=== PATIENT | female | born 1995 | race American Indian/Alaskan Native ===

== ENCOUNTER 2017-08-11 16:54 | Inpatient (IN) | payer BC ==
--- NOTE | 2017-08-11 17:13 | ED PDOC ---
HPI: Psych/Substance Abuse Time Seen by Provider: 08/11/17 17:04 Chief Complaint (Nursing): Psychiatric Evaluation History Per: Patient Onset/Duration Of Symptoms: Unknown Suicide/Self Injury Attempted (Context): Cut Wrists Modifying Factor(s): None Associated Symptoms: Depression Additional Complaint(s): Suicidal ideation with plan to cut her wrists. Pt will not say why she is depressed. Past Medical History Vital Signs: Last Vital Signs Temp 98.2 F 08/11/17 16:57 Pulse 108 H 08/11/17 16:57 Resp 18 08/11/17 16:57 BP 200/98 H 08/11/17 16:57 Pulse Ox 98 08/11/17 16:57 - Medical History PMH: Depression - Family History Family History: States: Unknown Family Hx - Allergies Allergies/Adverse Reactions: Allergies Allergy/AdvReac Type Severity Reaction Status Date / Time No Known Allergies Allergy Verified 08/11/17 16:57 Review of Systems ROS Statement: Except As Marked, All Systems Reviewed And Found Negative Psych: Positive for: Depression, Suicidal ideation Physical Exam - Reviewed Nursing Documentation Reviewed: Yes Vital Signs Reviewed: Yes - Physical Exam Appears: Positive for: Non-toxic, No Acute Distress Head Exam: Positive for: ATRAUMATIC, NORMAL INSPECTION, NORMOCEPHALIC Skin: Positive for: Normal Color, Warm, DRY Eye Exam: Positive for: EOMI, Normal appearance, PERRL ENT: Positive for: Normal ENT Inspection Neck: Positive for: Normal, Painless ROM Cardiovascular/Chest: Positive for: Regular Rate, Rhythm Respiratory: Positive for: CNT, Normal Breath Sounds Gastrointestinal/Abdominal: Positive for: Normal Exam, Soft Back: Positive for: Normal Inspection Extremity: Positive for: Normal ROM Neurologic/Psych: Positive for: Alert, Oriented - Laboratory Results Result Diagrams: 08/11/17 18:01 08/11/17 18:01 - ECG O2 Sat by Pulse Oximetry: 98 Medical Decision Making Medical Decision Making: Medically stable for pstchiatric admission Disposition - Clinical Impression Clinical Impression: Depression - Patient ED Disposition Is Patient to be Admitted: Yes - Disposition Disposition Time: 18:53 Condition: FAIR Forms: [employer] (Telugu) - Pt Status Changed To: Hospital Disposition Of: Inpatient - Admit Certification Admit to Inpatient:: After my assessment, the patient will require hospitalization for at least two midnights. This is because of the severity of symptoms shown, intensity of services needed, and/or the medical risk in this patient being treated as an outpatient. - POA Present On Arrival: None
[2017-08-11 18:10] LABS: BASO % 0.4 % (0.0-2.0); EOS # 0.1 K/uL (0.0-0.7); EOS % 0.8 % (0.0-4.0); HEMOGLOBIN 13.4 g/dL (12.0-16.0); LYMPH # 1.5 K/uL (1.0-4.3); LYMPH % 20.8 % (20.0-40.0); MEAN CELL VOLUME 81.7 fl (81.0-99.0); MEAN CORPUSCULAR HEMOGLOBIN 26.8 pg (27.0-31.0); MEAN CORPUSCULAR HGB CONC 32.8 g/dL (33.0-37.0); MEAN PLATELET VOLUME 9.3 fl (7.2-11.7); MONO # 0.7 K/uL (0.0-0.8); MONO % 9.5 % (0.0-10.0); NEUT % 68.5 % (50.0-75.0); RED CELL DISTRIBUTION WIDTH 14.6 % (11.5-14.5); WHITE BLOOD COUNT 7.3 K/uL (4.8-10.8)
[2017-08-11 18:16] LABS: ALB/GLOB RATIO 1.3 (1.0-2.1); ALBUMIN 4.1 g/dL (3.5-5.0); ALT/SGPT 18 U/L (9-52); AST/SGOT 18 U/L (14-36); BLOOD UREA NITROGEN 8 mg/dl (7-17); CALCIUM 9.3 mg/dL (8.4-10.2); GFR AFRICAN-AMERICAN > 60; GFR NON-AFRICAN AMERICAN > 60
[2017-08-11 21:02] VITALS: O2SAT 100
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
[2017-08-11] MEDS ORDERED: Magnesium Hydroxide Susp 30 ml UD PO PRN (22:49)
[2017-08-11] MEDS ORDERED: DiphenhydrAMINE 50 mg/ml Inj IM PRN (22:49)
[2017-08-11] MEDS ORDERED: Alum-Mag Hydrox-Simethicone Susp (30 mL) PO PRN (22:49)
[2017-08-11 22:52] VITALS: BMI 28.3
[2017-08-12 00:18] LABS: SQUAMOUS EPITHIAL 7 /hpf (0-5); URINE BACTERIA RARE (<OCC); URINE BILIRUBIN NEGATIVE (NEGATIVE); URINE BLOOD NEGATIVE (NEGATIVE); URINE CLARITY SLIGHTY-CLOUDY (Clear); URINE COLOR YELLOW (YELLOW); URINE GLUCOSE (UA) NEG (Normal); URINE LEUKOCYTE ESTERASE TRACE Leu/uL (Negative); URINE PROTEIN NEGATIVE (NEGATIVE)
[2017-08-12 01:10] LABS: BARBITURATES, UR NEGATIVE (NEGATIVE); BENZODIAZEPINES, UR NEGATIVE (NEGATIVE); HCG,QUALITATIVE URINE NEGATIVE (NEGATIVE); OPIATES, UR NEGATIVE (NEGATIVE); PHENCYCLIDINE, UR NEGATIVE (NEGATIVE)
[2017-08-12 09:59] LABS: T4 9.82 ug/dl (5.5-11.0)
--- NOTE | 2017-08-12 12:27 | CP.PCM.CON ---
History of Present Illness - History of Present Illness History of Present Illness: 22 y/o female with PMH depression in her adolescent years , not on any treatment for depression at present admitted to psych unit for management of her depression . Patient called the crisis hotline with suicidal thoughts and plan to hurt herself. Police department was consulted and she was brought in for crisis eval . Patient states that she has been having some problems at home and has been feeling more sad lately. She gives history of prior suicidal attempt with pills. At present still feeling helpless. Denies any hallucinations.Denies any chest pain , SOB, palpitations, PND, orthopnea, urinary symptoms or changes in bowel movements. Her menstrual cycle is regular.Not sexually active. Allergies ; NKDA PMH; history of depression and treatment during her adolescence Medications; None Family history ; Mother and Grandmother---HTN surgery : none Social history ; Lives in [place] with father , has 3 brothers ,Mother lives in [place], studies to become a nurse, denies any smoking , ETOH or drug abuse, not sexually active, last menstrual cycle was 2 weeks ago, single ROS ; 14 point review os system negative except above Review of Systems - Review of Systems All systems: reviewed and no additional remarkable complaints except Past Patient History - Infectious Disease Hx of Infectious Diseases: None - Tetanus Immunizations Tetanus Immunization: Unknown - Past Medical History & Family History Past Medical History?: Yes Past Family History: Reviewed and not pertinent - Past Social History Smoking Status: Unknown If Ever Smoked Chewing Tobacco Use: No Cigar Use: No Alcohol: None Drugs: Denies Home Situation {Lives}: With Family Domestic Violence: Negative - CARDIAC Hx Cardiac Disorders: No - PULMONARY Hx Respiratory Disorders: No Hx Tuberculosis: No - NEUROLOGICAL Hx Neurological Disorder: No HX Cerebrovascular Accident: No Hx Seizures: No - HEENT Hx HEENT Problems: No - RENAL Hx Chronic Kidney Disease: No - ENDOCRINE/METABOLIC Hx Endocrine Disorders: No - HEMATOLOGICAL/ONCOLOGICAL Hx Blood Disorders: No Hx Cancer: No Hx Human Immunodeficiency Virus (HIV): No - INTEGUMENTARY Hx Dermatological Problems: No - MUSCULOSKELETAL/RHEUMATOLOGICAL Hx Musculoskeletal Disorders: No - GASTROINTESTINAL Hx Gastrointestinal Disorders: No - GENITOURINARY/GYNECOLOGICAL Hx Genitourinary Disorders: No Hx Sexually Transmitted Disorders: No - PSYCHIATRIC Hx Depression: Yes Hx Emotional Abuse: No Hx Physical Abuse: No Hx Sexual Abuse: No Hx Substance Use: No - SURGICAL HISTORY Hx Surgeries: No - ANESTHESIA Hx Anesthesia: No Meds Allergies/Adverse Reactions: Allergies Allergy/AdvReac Type Severity Reaction Status Date / Time No Known Allergies Allergy Verified 08/11/17 16:57 - Medications Medications: Current Medications Acetaminophen (Tylenol 325mg Tab) 650 mg PO Q4 PRN PRN Reason: pain level 4-7 Al Hydrox/Mg Hydrox/Simethicone (Maalox Plus 30 Ml) 30 ml PO Q4 PRN PRN Reason: Dyspepsia Diphenhydramine HCl (Benadryl) 50 mg IM Q6 PRN PRN Reason: Extrapyramidal S/S Unable PO Diphenhydramine HCl (Benadryl) 50 mg PO Q6 PRN PRN Reason: Extrapyramidal Symptoms Haloperidol (Haldol) 5 mg PO Q4 PRN PRN Reason: Agitation Haloperidol Lactate (Haldol) 5 mg IM Q4 PRN PRN Reason: Agitation, Unable to Take PO Lorazepam (Ativan) 2 mg IM Q4 PRN PRN Reason: Anxiety/Agitation,Unable PO Lorazepam (Ativan) 2 mg PO Q4 PRN PRN Reason: Anxiety/Agitation Magnesium Hydroxide (Milk Of Magnesia) 30 ml PO HS PRN PRN Reason: Constipation Trazodone HCl (Desyrel) 50 mg PO HS PRN PRN Reason: for insomnia Last Admin: 08/12/17 00:30 Dose: 50 mg Physical Exam - Constitutional Appears: Non-toxic, No Acute Distress - Head Exam Head Exam: ATRAUMATIC, NORMAL INSPECTION, NORMOCEPHALIC - Eye Exam Eye Exam: EOMI, Normal appearance, PERRL Pupil Exam: NORMAL ACCOMODATION - ENT Exam ENT Exam: Mucous Membranes Moist, Normal Exam - Neck Exam Neck exam: Positive for: Full Rom, Normal Inspection - Respiratory Exam Respiratory Exam: Clear to Auscultation Bilateral, NORMAL BREATHING PATTERN. absent: Rales, Rhonchi, Wheezes - Cardiovascular Exam Cardiovascular Exam: REGULAR RHYTHM, RRR, +S1, +S2. absent: JVD - GI/Abdominal Exam GI & Abdominal Exam: Normal Bowel Sounds, Soft. absent: Distended, Guarding, Rebound, Tenderness - Rectal Exam Rectal Exam: Deferred - Extremities Exam Extremities exam: Positive for: normal capillary refill, normal inspection, pedal pulses present. Negative for: calf tenderness, pedal edema - Back Exam Back exam: NORMAL INSPECTION - Neurological Exam Neurological exam: Alert, CN II-XII Intact, Oriented x3, Reflexes Normal - Psychiatric Exam Psychiatric exam: Flat Affect - Skin Skin Exam: Dry, Intact, Normal Color, Warm Results - Vital Signs Recent Vital Signs: Last Vital Signs Temp 99.5 F 08/11/17 22:48 Pulse 84 08/11/17 22:48 Resp 22 08/11/17 22:48 BP 136/90 08/11/17 22:48 Pulse Ox 100 08/11/17 22:48 - Labs Result Diagrams: 08/11/17 18:01 08/11/17 18:01 Labs: Laboratory Results - last 24 hr 08/11/17 08/11/17 08/11/17 18:01 18:01 23:45 WBC 7.3 RBC 5.00 Hgb 13.4 Hct 40.8 MCV 81.7 MCH 26.8 L MCHC 32.8 L RDW 14.6 H Plt Count 291 MPV 9.3 Neut % (Auto) 68.5 Lymph % (Auto) 20.8 [place] % (Auto) 9.5 Eos % (Auto) 0.8 Baso % (Auto) 0.4 Neut # (Auto) 5.0 Lymph # (Auto) 1.5 [place] # (Auto) 0.7 Eos # (Auto) 0.1 Baso # (Auto) 0.0 Sodium 144 Potassium 4.1 Chloride 108 H Carbon Dioxide 23 Anion Gap 17 BUN 8 Creatinine 0.6 L Est GFR ( Amer) > 60 Est GFR (Non-Af Amer) > 60 Random Glucose 114 H Calcium 9.3 Total Bilirubin 0.4 AST 18 ALT 18 Alkaline Phosphatase 59 Total Protein 7.3 Albumin 4.1 Globulin 3.1 Albumin/Globulin Ratio 1.3 Triglycerides Cholesterol LDL Cholesterol Direct HDL Cholesterol Thyroxine (T4) TSH 3rd Generation Urine Color Urine Clarity Urine pH Ur Specific [place] Urine Protein Urine Glucose (UA) Urine Ketones Urine Blood Urine Nitrate Urine Bilirubin Urine Urobilinogen Ur Leukocyte Esterase Urine RBC (Auto) Urine Microscopic WBC Ur Squamous Epith Cells Urine Bacteria Urine HCG, Qual Urine Opiates Screen Negative Urine Methadone Screen Negative Ur Barbiturates Screen Negative Ur Phencyclidine Scrn Negative Ur Amphetamines Screen Negative U Benzodiazepines Scrn Negative U Oth Cocaine Metabols Negative U Cannabinoids Screen Negative Alcohol, Quantitative < 10 08/11/17 08/12/17 23:45 09:11 WBC RBC Hgb Hct MCV MCH MCHC RDW Plt Count MPV Neut % (Auto) Lymph % (Auto) [place] % (Auto) Eos % (Auto) Baso % (Auto) Neut # (Auto) Lymph # (Auto) [place] # (Auto) Eos # (Auto) Baso # (Auto) Sodium Potassium Chloride Carbon Dioxide Anion Gap BUN Creatinine Est GFR ( Amer) Est GFR (Non-Af Amer) Random Glucose Calcium Total Bilirubin AST ALT Alkaline Phosphatase Total Protein Albumin Globulin Albumin/Globulin Ratio Triglycerides 104 Cholesterol 146 LDL Cholesterol Direct 93 HDL Cholesterol 29 L Thyroxine (T4) 9.82 TSH 3rd Generation 1.81 Urine Color Yellow Urine Clarity Slighty-cloudy Urine pH 7.0 Ur Specific [place] 1.013 Urine Protein Negative Urine Glucose (UA) Neg Urine Ketones 20 Urine Blood Negative Urine Nitrate Negative Urine Bilirubin Negative Urine Urobilinogen 4.0 H Ur Leukocyte Esterase Trace Urine RBC (Auto) 1 Urine Microscopic WBC 4 Ur Squamous Epith Cells 7 H Urine Bacteria Rare Urine HCG, Qual Negative Urine Opiates Screen Urine Methadone Screen Ur Barbiturates Screen Ur Phencyclidine Scrn Ur Amphetamines Screen U Benzodiazepines Scrn U Oth Cocaine Metabols U Cannabinoids Screen Alcohol, Quantitative Assessment & Plan - Assessment and Plan (Free Text) Assessment: 22 y/o female with PMH depression in her adolescent years , not on any treatment for depression at present admitted to psych unit for management of her depression . Patient called the crisis hotline with suicidal thoughts and plan to hurt herself. Police department was consulted and she was brought in for crisis eval . Patient states that she has been having some problems at home and has been feeling more sad lately. She gives history of prior suicidal attempt with pills. At present still feeling helpless. Denies any hallucinations.Denies any chest pain , SOB, palpitations, PND, orthopnea, urinary symptoms or changes in bowel movements. Her menstrual cycle is regular.Not sexually active. 1. Depression with suicidal ideation management as per psych Patient is medically stable TSH -wnl , RPR - negative Will sign off the case Re consult if needed.
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
--- NOTE | 2017-08-12 22:41 | CARD ---
APPROVED REPORT EKG Measurement Heart [id number] <Conclusion> Normal sinus rhythm Normal ECG
--- NOTE | 2017-08-13 12:59 | PCM.PYCHPN ---
Psychiatric Progress Note - Psychiatric Progress Note Patient seen today, length of contact: pt evaluated discussed with team chart reviewed Patient Chief Complaint: I was let down by both my parents Problems Identified/Issues Discussed: pt seen in bed, isolating herself in her room , unkempt, not attending to her personal hygiene psychomotor retardation and poor food intake, very low energy and melancholic affect, , her speech is soft and slow, pt tearful and with very poor eye contact reported very distressed due to the poor relation with her parents and feeling that she was let down by both of them without any current social support, pt reported she is experiencing auditory hallucinations putting her down , and mocking her , she denied command hallucinations, continues to have passive suicidal ideation, stating she sees no purpose for living and feeling hopeless about her current situation, denied active plan on the unit CBT provided , encouraged patient to start eating and to attend groups, discussed starting effexor nad and abilify and uptitrtaing gradually Medical Problems[place], has not been in treatment recently DSM 5 Symptoms Update: major depression recurrent severe with psychotic features Medication Change: Yes (start effexor and abilify) Medical Record Reviewed: Yes Mental Status Examination - Cognitive Function Orientation: Person, Place Attention: Poor Concentration: Poor Fund of Knowledge: WNL Decription of patient's judgement and insights: partial insight poor judgment - Mood Mood: Depressed, Anxious - Affect Affect: Constricted, Depressed - Speech Speech: Soft - Formal Thought Process Formal Thought Process: Circumstantial Psychotic Thoughts and Behaviors: pt reported non command auditory hallucinations putting her down - Suicidal Ideation Suicidal Ideation: No - Homicidal Ideation Homicidal Ideation: No Goal/Treatment Plan - Goal/Treatment Plan Need for Continued Stay: Severe depression anxiety, Discharge may exacerbated symptoms Progress Toward Problem(s) and Goals/Treatment Plan: D/C lexapro start effexor 37.5mg daily start abilify 5mg daily CBT group and supportive therapy
--- NOTE | 2017-08-14 15:14 | PCM.PYCHPN ---
Psychiatric Progress Note - Psychiatric Progress Note Patient seen today, length of contact: pt evaluated discussed with team chart reviewed Patient Chief Complaint: I feel emptiness and loneliness Problems Identified/Issues Discussed: pt evaluated with treatment team , presenting with depressed mood and affect, partial eye contact with soft speech, pt continues to experience auditory hallucinations putting her down and criticizing her , continues to isolate herself in her room needs lot of encouragement to participate in groups dysphoric mood and affect with psychomotor retardation, continues to report passive suicidal ideation, stating having no purpose in life and no social support discussed with pt increasing dose of effexor and abilify, no reported side effects CBT provided , encouraged compliance with treatment [place], has not been in treatment recently DSM 5 Symptoms Update: major depression recurrent severe with psychotic features Medication Change: Yes (increase effexor and abilify) Medical Record Reviewed: Yes Mental Status Examination - Cognitive Function Orientation: Person, Place Attention: Poor Concentration: Poor Fund of Knowledge: WNL Decription of patient's judgement and insights: partial insight poor judgment - Mood Mood: Depressed, Anxious - Affect Affect: Constricted, Depressed - Speech Speech: Soft - Formal Thought Process Formal Thought Process: Circumstantial Psychotic Thoughts and Behaviors: pt reported non command auditory hallucinations putting her down - Suicidal Ideation Suicidal Ideation: No - Homicidal Ideation Homicidal Ideation: No Goal/Treatment Plan - Goal/Treatment Plan Need for Continued Stay: Severe depression anxiety, Discharge may exacerbated symptoms Progress Toward Problem(s) and Goals/Treatment Plan: increase effexor 37.5mg bid increase abilify 10mg qhs CBT group and supportive therapy
--- NOTE | 2017-08-15 12:18 | PCM.PYCHPN ---
Psychiatric Progress Note - Psychiatric Progress Note Patient seen today, length of contact: pt evaluated discussed with team chart reviewed Patient Chief Complaint: I still hear the voices putting me down and I feel unwanted Problems Identified/Issues Discussed: pt evaluated , continues to present with depressed mood and dysphoric affect,pt spoke about the poor relation between her and both her parents, also stated has been trying to contact her sibilings and they would not respond to her , reported ahving racing thoughts, making her anxious, continues to experience non command auditory hallucinations putting her down,pt declined starting risperidone for weight gain as a side effect in the past,pt reported previous symptoms of binging and purging , / bulimia nervosa agreed to increase abilify CBT provided , encouraged compliance with treatment and attending groups pt denied any current active suicidal ideation on the unit , denied homicidal ideation , no reported side effects [place], has not been in treatment recently DSM 5 Symptoms Update: major depression recurrent severe with psychotic features borderline personality disorder bulimia nervosa Medication Change: Yes (increase effexor and abilify) Medical Record Reviewed: Yes Mental Status Examination - Cognitive Function Orientation: Person, Place Attention: Poor Concentration: Poor Fund of Knowledge: WNL Decription of patient's judgement and insights: partial insight poor judgment - Mood Mood: Depressed, Anxious - Affect Affect: Constricted, Depressed - Speech Speech: Soft - Formal Thought Process Formal Thought Process: Circumstantial Psychotic Thoughts and Behaviors: pt reported non command auditory hallucinations putting her down - Suicidal Ideation Suicidal Ideation: No - Homicidal Ideation Homicidal Ideation: No Goal/Treatment Plan - Goal/Treatment Plan Need for Continued Stay: Severe depression anxiety, Discharge may exacerbated symptoms Progress Toward Problem(s) and Goals/Treatment Plan: continue effexor 37.5mg bid and uptitrate gradually increase abilify 15mg CBT group and supportive therapy
--- NOTE | 2017-08-16 15:15 | PCM.PYCHPN ---
Psychiatric Progress Note - Psychiatric Progress Note Patient seen today, length of contact: pt evaluated discussed with team chart reviewed Patient Chief Complaint: I felt better seeing my dad yesterday Problems Identified/Issues Discussed: pt evaluated , , continues to report somatic symptoms of depression including nausea, poor appetite, body weakness , continues to be unkempt and not attending to her personal appearence, when asked about her depression pt hrated it to be 7/10, indicating some mood improvement relating that to visit from her father yesterday, and feeling that he ustarted to understand what she is going through, when asked about the auditory hallucinations pt rated them to be less about 5/ 10 and stated that they are currently non command in nature discussed with pt her current diagnosis , as she reported the possibility of bipolar diagnosis , explained to patient the diagnosis of Borderline personality diaorder and discussed the need to observe for a period of time to diagnose bipolar disorder discussed with her crosstapering effexor with prozac due to history of eating disorder, pt preferred to be continued on effexor as she has been on zoloft before and reported feeling better energy with SNRI , also discussed gradual increase in abilify, no reported side effects of medications pt attending groups, more visible on the unit denied any current active suicidal ideation or thoughts of self harm on the unit , Medical Problems[place], has not been in treatment recently DSM 5 Symptoms Update: major depression recurrent severe with psychotic features borderline personality disorder Medication Change: Yes (increase effexor and abilify) Medical Record Reviewed: Yes Mental Status Examination - Cognitive Function Orientation: Person, Place Attention: WNL Concentration: WNL Association: WN Fund of Knowledge: WN Decription of patient's judgement and insights: partial insight poor judgment - Mood Mood: Depressed, Anxious - Affect Affect: Constricted, Depressed - Speech Speech: Soft - Formal Thought Process Formal Thought Process: Circumstantial Psychotic Thoughts and Behaviors: pt reported non command auditory hallucinations putting her down - Suicidal Ideation Suicidal Ideation: No - Homicidal Ideation Homicidal Ideation: No Goal/Treatment Plan - Goal/Treatment Plan Need for Continued Stay: Severe depression anxiety, Discharge may exacerbated symptoms Progress Toward Problem(s) and Goals/Treatment Plan: continue effexor 37.5mg bid and uptitrate gradually increase abilify 15mg CBT group and supportive therapy
[2017-08-17] MEDS: Venlafaxine 75 mg ER Cap PO SCH (09:13)
--- NOTE | 2017-08-17 12:01 | PCM.PYCHPN ---
Psychiatric Progress Note - Psychiatric Progress Note Patient seen today, length of contact: pt evaluated discussed with team chart reviewed Patient Chief Complaint: I think loosing connection with every body made me that sick Problems Identified/Issues Discussed: pt evaluated , seen in day room, more kempt, well groomed, attending more to her appearence, speech continues to be soft but more productive, reported mood is better due to having visits from her dad, presenting with brighter affect , pt also reported clearing off of the auditory hallucinations, currently very faint and non command in type CBT provided, discussed with pt possible alternative plans to challenge the negative thoughts no rpeoted side effects of medications, pt denied any current suicidal ideation or thoughts of self harm [place] Problems[place], has not been in treatment recently DSM 5 Symptoms Update: major depression recurrent severe with psychotic features borderline personality disorder Medication Change: No Medical Record Reviewed: Yes Mental Status Examination - Cognitive Function Orientation: Person, Place Attention: WNL Concentration: WNL Association: WNL Fund of Knowledge: WN Decription of patient's judgement and insights: partial insight poor judgment - Mood Mood: Depressed, Anxious - Affect Affect: Constricted, Depressed - Speech Speech: Soft - Formal Thought Process Formal Thought Process: Circumstantial Psychotic Thoughts and Behaviors: pt reportedclearing off of the non command auditory hallucinations - Suicidal Ideation Suicidal Ideation: No - Homicidal Ideation Homicidal Ideation: No Goal/Treatment Plan - Goal/Treatment Plan Need for Continued Stay: Severe depression anxiety, Discharge may exacerbated symptoms Progress Toward Problem(s) and Goals/Treatment Plan: continue effexor xr 75mg daily and uptitrate gradually abilify 15mg CBT group and supportive therapy
[2017-08-18] MEDS: Venlafaxine 75 mg ER Cap PO SCH (08:46)
--- NOTE | 2017-08-18 13:31 | PCM.PYCHPN ---
Psychiatric Progress Note - Psychiatric Progress Note Patient seen today, length of contact: pt evaluated discussed with team chart reviewed Patient Chief Complaint: I am feeling better, my father came to see me again Problems Identified/Issues Discussed: pt evaluated , seen in day room, better groomed, attending groups, speech continues to be soft but more productive, reported mood is better due to having visits from her dad, presenting with brighter affect , pt also reported clearing off of the auditory hallucinations, no current somatic complaints CBT provided, discussed with pt possible alternative plans to challenge the negative thoughts no reperted side effects of medications, pt denied any current suicidal ideation or thoughts of self harm [place], has not been in treatment recently DSM 5 Symptoms Update: major depression recurrent ssevere with psychotic features borderline personality disorder Medication Change: No Medical Record Reviewed: Yes Mental Status Examination - Cognitive Function Orientation: Person, Place Attention: WNL Concentration: WNL Association: WNL Fund of Knowledge: WNL Decription of patient's judgement and insights: partial insight poor judgment - Mood Mood: Depressed, Anxious - Affect Affect: Constricted, Depressed - Speech Speech: Soft - Formal Thought Process Formal Thought Process: Circumstantial Psychotic Thoughts and Behaviors: ptdebied any current perceptual disturbances, non elicited - Suicidal Ideation Suicidal Ideation: No - Homicidal Ideation Homicidal Ideation: No Goal/Treatment Plan - Goal/Treatment Plan Need for Continued Stay: Severe depression anxiety, Discharge may exacerbated symptoms Progress Toward Problem(s) and Goals/Treatment Plan: continue effexor xr 75mg daily and uptitrate gradually abilify 15mg CBT group and supportive therapy referral for DBT on discharge
[2017-08-19] MEDS: Venlafaxine 75 mg ER Cap PO SCH (08:39)
[2017-08-19 13:36] VITALS: TEMP 97.7
--- NOTE | 2017-08-19 14:48 | PCM.PYCHPN ---
Psychiatric Progress Note - Psychiatric Progress Note Patient seen today, length of contact: pt evaluated discussed with team chart reviewed Patient Chief Complaint: I am better today Problems Identified/Issues Discussed: pt evaluated , presenting with better mood brighter affect, attending groups, compliant with treatment, pt reported clearing off of the auditory hallucinations motivated to start therapy on discharge, treatment plan discussed with father upon pt consent no reported side effects of medications, pt denied any current suicidal ideation or thoughts of self harm [place] Problems[place], has not been in treatment recently DSM 5 Symptoms Update: major depression recurrent severe wit psychotic features borderline personality disorder Medication Change: No Medical Record Reviewed: Yes Mental Status Examination - Cognitive Function Orientation: Person, Place Attention: WNL Concentration: WNL Association: WNL Fund of Knowledge: WN Decription of patient's judgement and insights: partial insight poor judgment - Mood Mood: Anxious, Neutral - Affect Affect: Constricted, Depressed - Speech Speech: Soft - Formal Thought Process Formal Thought Process: Circumstantial Psychotic Thoughts and Behaviors: ptdebied any current perceptual disturbances, non elicited - Suicidal Ideation Suicidal Ideation: No - Homicidal Ideation Homicidal Ideation: No Goal/Treatment Plan - Goal/Treatment Plan Need for Continued Stay: Severe depression anxiety, Discharge may exacerbated symptoms Progress Toward Problem(s) and Goals/Treatment Plan: continue effexor xr 75mg daily abilify 15mg CBT group and supportive therapy referral for DBT on discharge
[2017-08-20] MEDS: Venlafaxine 75 mg ER Cap PO SCH (09:01)
[2017-08-20 09:03] VITALS: BP 151/98; PULSE 107; RESP 20
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
== END 2017-08-20 12:27 | disposition home or self-care (01) | DRG 885 ==
LOC: H.ER 16:54 → H.ERHOLD 18:53 → H.PSYCH 22:39
PROVIDERS: ADMIT Psychiatry & Neurology Psychiatry; ATTEND Psychiatry & Neurology Psychiatry
PROC: GZHZZZZ Group Psychotherapy (ICD-10-PCS; principal; 2017-08-11)
PROC: GZ51ZZZ Individual Psychotherapy, Behavioral (ICD-10-PCS; 2017-08-11)
DX: F33.3 Major depressive disorder, recurrent, severe with psychotic symptoms (principal); F50.2 Bulimia nervosa; R45.851 Suicidal ideations; F60.3 Borderline personality disorder; Z63.9 Problem related to primary support group, unspecified; Z82.49 Family history of ischemic heart disease and other diseases of the circulatory system; Z86.59 Personal history of other mental and behavioral disorders; Z91.5 Personal history of self-harm